=== PATIENT | female | born 1990 | race Caucasian/White ===

== ENCOUNTER → 2021-01-20 12:32 | Outpatient (CLI) | payer SELFPAY ==
--- NOTE | ~2021-01-20 | MR_ITS ---
EXAMINATION: MR brain/brain stem wo/w con DATE: 01/20/2021 13:34 INDICATION: Hyperprolactinemia. TECHNIQUE: Magnetic resonance imaging (MRI) of the brain and brainstem was performed without and with 15 mL MultiHance intravenous contrast. Whole-brain sequences included sagittal T1-weighted FSE, axia l diffusion-weighted FS EPI, axial T2*-weighted GRE, axial T2-weighted FLAIR Propeller, and axial T2- weighted Propeller. Small [id number]-[id number] sequences included sagittal and coronal T1-weighted FSE cente red at the pituitary. Postcontrast sequences included small [id number] coronal T1-weighted FSE in a time course and sagittal T1-weighted FSE and whole-brain axial T1-weighted FSE. Apparent diffusion coefficient (ADC) maps were created. COMPARISON: None. FINDINGS: The pituitary is normal in size with height of 5 mm and concave superior margin. The infund ibulum is at the midline. There is no intracranial hemorrhage, acute infarction, or abnormal intracra nial mass lesion. The ventricles are normal in size. The orbits are normal. The paranasal sinuses are clear. The mastoid air cells are normal. IMPRESSION: 1. Normal brain. Normal pituitary. Reviewed, dictated and finalized at location B.
[2021-01-20 13:00] LABS: Estimated Glomerular Filt Rate > 60
== END ==
PROVIDERS: Visit Provider Physician Assistant
DX: E22.1 Hyperprolactinemia (principal)
CPT/HCPCS: 70553; A9577

== ENCOUNTER 2024-06-25 18:36 | Emergency (ER) | payer OTHER, SELFPAY ==
[2024-06-25 18:56] VITALS: BP 137/78; PULSE 73; RESP 18; TEMP 36.7; O2SAT 100
--- NOTE | 2024-06-25 19:46 | ED.URI ---
HPI - URI/Sore Throat General Chief Complaint: Upper Respiratory Infection Stated Complaint: Cough, congestion Time Seen by Provider: 06/25/24 19:35 Source: patient and RN notes reviewed Mode of arrival: ambulatory Limitations: no limitations History of Present Illness HPI Narrative: Patient presents today with a 10-14 day history of cough, nasal congestion, chest congestion, sore throat. Reports she has subjective fever initially, but none since that time. She does report some intermittent mild shortness of breath, but none presently. She has been taking some DayQuil and ibuprofen with mild relief. Related Data Home Medications Medication Instructions Recorded Confirmed cholecalciferol (vitamin D3) 25 25 mcg PO DAILY 06/25/24 06/25/24 mcg (1,000 unit) tablet fexofenadine 180 mg tablet mg 06/25/24 losartan 25 mg tablet mg 06/25/24 Allergies Allergy/AdvReac Type Severity Reaction Status Date / Time Penicillins Allergy Hives Verified 06/25/24 18:59 Review of Systems Review of Systems: CONSTITUTIONAL: Denies body aches, fever, chills, or sweats. EYES: Denies visual changes, redness, or discharge. ENT: Denies rhinorrhea, or otalgia.+ congestion, sore throat CARDIOVASCULAR: Denies chest pain, palpitations, or edema. RESPIRATORY: + cough, shortness of breath GASTROINTESTINAL: Denies abdominal pain, nausea, vomiting, or diarrhea. GENITOURINARY: Denies dysuria or hematuria. SKIN: Denies rash, itching, or wounds. MUSCULOSKELETAL: Denies back pain, joint pain, or myalgia. NEUROLOGIC: Denies headache, numbness, tingling, or weakness. PSYCH: Denies depression or anxiety. PMFSH Social History Social History Smoking status: Never smoker Tobacco type: e-cigarettes/vaping Alcohol intake: never Comments At time of signature, I have reviewed and agree with nursing past medical, surgical, social and family history unless otherwise noted. Please see nursing chart for further information. There is no relevant family history pertinent to the presenting complaint Exam Narrative: GENERAL: Mildly ill-appearing, well-nourished, and in no acute distress. HEAD: Normocephalic, atraumatic. EYES: EOMI. No redness or drainage. Conjunctivae normal. ENT: Mucous membranes pink and moist. Nares congested with rhinorrhea. TMs normal bilaterally. Throat mildly erythematous without edema or exudate. Uvula midline. NECK: Normal AROM. Supple. No lymphadenopathy. CHEST: No respiratory distress. Clear to auscultation. Breathing easy and answering questions in complete sentences. HEART: Regular rate and rhythm. No murmur appreciated. EXTREMITIES: Normal range of motion. No edema. SKIN: Warm, dry, no rash. Capillary refill normal. Normal skin turgor. NEURO: No focal deficits. Alert and oriented x3. Gait steady. PSYCH: Anxious about her insurance issues. Course Course Level of Care: Express Care Visit Vital Signs Vital signs: Vital Signs Temperature 98.1 F 06/25/24 18:56 Pulse Rate 73 06/25/24 18:56 Respiratory Rate 18 06/25/24 18:56 Blood Pressure 137/78 06/25/24 18:56 Pulse Oximetry 100 06/25/24 18:56 Oxygen Delivery Room Air 06/25/24 18:56 Temperature 98.1 F 06/25/24 18:56 Pulse Rate 73 06/25/24 18:56 Respiratory Rate 18 06/25/24 18:56 Blood Pressure 137/78 06/25/24 18:56 Pulse Oximetry 100 06/25/24 18:56 Oxygen Delivery Room Air 06/25/24 18:56 Reviewed MDM - URI/Sore Throat MDM Narrative Medical decision making narrative: Patient's symptoms likely started out viral, but after 10-14 days, she may have developed a secondary bacterial infection. Will treat with doxycycline. She will continue OTC medications. Anticipatory guidance given. ED precautions given. Differential Diagnosis Differential diagnosis: Likely upper respiratory infection, sinusitis, viral infection, bronchitis and other (Pneumoni
== END 2024-06-25 19:55 | disposition home or self-care (01) ==
PROVIDERS: Emergency Provider Nurse Practitioner; PCP Physician Assistant
DX: R09.89 Other specified symptoms and signs involving the circulatory and respiratory systems (principal); R05.9 Cough, unspecified; F17.290 Nicotine dependence, other tobacco product, uncomplicated
CPT/HCPCS: 99213; G0463